=== PATIENT | male | born 1970 | race African-American/Black ===

== ENCOUNTER 2025-01-08 16:20 | Outpatient (REF) | payer OTHER, SELFPAY ==
--- NOTE | ~2025-01-08 | XR_ITS ---
CLINICAL HISTORY: ankle pain 3 view right ankle Comparison: None Findings: No acute fractures. Ankle mortise intact. No significant arthritic change or erosions. No ankle effusion. No radiopaque foreign body. IMPRESSION: 1. No acute findings. This document has been electronically signed by: Abdias Rodriguez MD on 01/10/2025 08:44:33
--- OUTSIDE RECORDS SUMMARY | 2025-01-08 16:28 | XMS_ITS | Clinical Summary ---
Author Organization 175 [facility] Address [address] [place] [address] Phone Care Team Providers Care Javascript Ui Developer Name Role Phone Joseph Jerez NP Primary Care Provider [phone]- [phone] Allergies No known active allergies Medications silver sulfADIAZINE (SILVADENE, SSD) 1 % cream Apply topically to nail bed daily 4 Active polyethylene glycol (GoLYTELY) 236-22.74-6.74 -5.86 gram solution Take 4,000 mL by mouth once for 1 dose. Take 4,000 mL by mouth once for 1 dose 0 Active aspirin 81 mg EC tablet Take 81 mg by mouth daily. Active empagliflozin (Jardiance) 25 mg tablet Take 1 Tab by mouth every morning (before breakfast). Active hydroCHLOROthiazi de (HYDRODIURIL) 25 mg tablet Take 25 mg by mouth daily. Active FREESTYLE LANCETS MISC 1 Each daily as needed. Active linaGLIPtin 5 mg tablet Take 1 Tab by mouth every morning (before breakfast). Active loratadine (CLARITIN) 10 mg tablet Take 10 mg by mouth daily as needed. Active losartan (COZAAR) 50 mg tablet Take 50 mg by mouth daily. Active metFORMIN (GLUCOPHAGE) 500 mg tablet Take 500 mg by mouth 2 times daily (with meals). Active simvastatin (ZOCOR) 40 mg tablet Take 1 tablet (40 mg total) by mouth at bedtime. Active blood sugar diagnostic (FreeStyle Lite Strips) test strip 1 Each by In Vitro route daily as needed. Active nystatin (MYCOSTATIN) ointment Apply topically 2 times daily. Active sildenafiL (VIAGRA) 25 mg tablet Take 25 mg by mouth as needed. Active albuterol sulfate (ProAir RespiClick) 90 mcg/actuation aerosol powdr breath activated Inhale 2 puffs by mouth every 4 (four) hours if needed. Active reservoir inhalation (INSPIREASE) device Active Active Problems Problem Noted Date Diagnosed Date Erectile dysfunction 09/30/2019 Hyperlipidemia 09/30/2019 Seasonal allergies 09/30/2019 Severe obesity (BMI 35.0-39. 9) with comorbidity ([facility] V24, [facility] V28) 09/30/2019 Type 2 diabetes mellitus wit h vascular disease ([facility] V24, [facility] V28) 09/30/2019 Immunizations Name Administration Dates Next Due Moderna SARS-CoV-2 COVID-19, mRNA, LNP-S, preservative free 11/14/2020,10/17/2020 Medical History Medical History Date Comments Erectile dysfunction 09/30/2019 DX:Erectile dysfunction Hyperlipidemia 09/30/2019 DX:Hyperlipidemi a Seasonal allergies 09/30/2019 DX:Seasonal a llergies Severe obesity (BMI 35.0-39. 9) with comorbidity ([facility] V24, [facility] V28) 09/30/2019 DX:Severe obesi ty (BMI 35.0- 39.9) with comorbidity ([facility]) Type 2 diabetes mellitus wit h vascular disease ([facility] V24, [facility] V28) 09/30/2019 DX:Type 2 diabetes mellitus with vascular disease ([facility]) Social History Tobacco Use Types Packs/Day Years Used Date Smoking Tobacco: Never Assessed Sex and Gender Information Value Date Recorded Sex Assigned at Not on file Legal Sex Male 9:56 AM EST Gender Identity Not on file Sexual Orientation Not on file Obstetrics History Last Filed Vital Signs Vital Sign Reading Time Taken Comments Blood Pressure - - Pulse - - Temperature - - Respiratory Rate - - Oxygen Saturation - - Inhaled Oxygen Concentration - - Weight 99.8 kg (220 lb) 10/04/2024 6:08 PM EST Height 182.9 cm (6') 03/21/2024 2:53 PM EDT Body Mass Index 29.84 03/21/2024 2:53 PM EDT Plan of Treatment Health Maintenance Due Date Last Done Comments Diabetes: Annual Foot Exam 1979 Diabetes: Annual Retina Eye Exam 1979 HIV Screening 09/12/2023 Hepatitis C Screening 09/12/2023 Social Influencers of Health Screening 09/12/2023 COVID-19 Vaccine ( season) 2024 08/02/2022, 08/11/2021, 11/14/2020, Additional history exists Diabetes: Blood Sugar Control Test (HGBA1C) 12/09/2024 06/10/2024, 06/06/2024 Diabetes: Annual Urine Albumin-Creatinine Ratio (uACR) 06/06/2025 06/06/2024, 06/21/2022, 10/29/2021, Additional history exists Diabetes: Annual GFR (Glomerular Filtration Rate) 06/10/2025 06/10/2024 Hypertension/CHF/CAD Annual BMP Blood Test 06/10/2025 06/10/2024 Depression Screening 07/09/2025 07/09/2024 Cholesterol Screening (Lipid Panel) 06/10/2029 06/10/2024, 06/10/2024, 09/07/2023, Additional history exists Colorectal Cancer Screening: Colonoscopy 09/20/2029 09/20/2019 DTaP,Tdap,and Td Vaccines (3 - Td or Tdap) 08/02/2032 08/02/2022, 07/10/2012 Hepatitis B Vaccines Completed 01/11/2013, 09/04/2012, 07/10/2012 Zoster Vaccines Completed 06/21/2022, 04/21/2022 Pneumococcal Vaccine: 50+ Years Completed 11/21/2023, 08/26/2014 Pneumococcal Vaccine: Pediatrics (0 to 5 Years) and At-Risk Patients (6 to 64 Years) Completed 11/21/2023, 08/26/2014 Influenza Vaccine Completed 06/06/2024, , 04/19/2022, Additional history exists HIB Vaccines Aged Out No longer eligi ble based on patient's age to complete this topic HPV Vaccines Aged Out No longer eligi ble based on patient's age to complete this topic Hepatitis A Vaccines Aged Out No long er eligible based on patient's age to complete this topic IPV Vaccines Aged Out No longer eligi ble based on patient's age to complete this topic MMR Vaccines Aged Out No longer eligi ble based on patient's age to complete this topic Meningococcal ACWY Vaccine Aged Out N o longer eligible based on patient's age to complete this topic Meningococcal B Vaccine Aged Out No l onger eligible based on patient's age to complete this topic RSV Immunization Patients Under 20 months Aged Out No longer eligible based on patient's age to complete this topic Varicella Vaccines Aged Out No longer eligible based on patient's age to complete this topic Procedures Procedure Name Priority Date/Time Associated Diagnosis Comments COLONOSCOPY Routine 09/20/2019 from Last 3 Months or Most Recently Relevant to Health Maintenance Results * Colonoscopy (09/20/2019) Colonoscopy no interpretation , abstracted Anatomical Region Laterality Modality Other Historical Provider MD HEALTH MAINTENANCE Final Result from Last 3 Months or Most Recently Relevant to Health Maintenance Insurance [facility] [employer] Care Teams Javascript Ui Developer Relationship Specialty Start Date End Date Joseph Jerez NP [address] [place] [address] PCP - General Nurse Practitioner 08/28/24
== END 2025-01-08 16:21 | disposition home or self-care (01) ==
LOC: HO.XRAY 16:20
PROVIDERS: Visit Provider Psychiatry & Neurology Neurology
DX: M25.571 Pain in right ankle and joints of right foot (principal)
CPT/HCPCS: 73610

== ENCOUNTER → 2025-01-08 16:40 | Outpatient (BNV) | payer OTHER, SELFPAY | PROVIDERS: Visit Provider Specialist | DX: M25.571 Pain in right ankle and joints of right foot (principal) | CPT/HCPCS: 73610 ==

== ENCOUNTER 2025-06-11 13:39 | Outpatient (AMB) | payer OTHER, SELFPAY ==
--- NOTE | 2025-06-11 13:52 | MHC.OFFVIS ---
Intake Visit Reasons: 3m Allergies No Known Allergies Allergy (Verified 04/01/25 07:32) HPI Comments Details: 54 yr old man with severe spinal cord compression at C5-6 with cord abnormality who presented with a history of progressive gait disturbance.? He? started with fatigue in his legs, which got gradually worse over a few months with increasing stiffness in the legs, weakness and multiple falls.? His upper body feels fine.? His balance has been poor.? If he coughs or sits in certain ways, he can be incontinent of urine.? He has no pain no neck pain or headaches.? He has no previous neurological symptoms. He had decompression 01/15/[address] Hernandez. He is doing great with a 75% improvement. . Occasionally the legs drag and endurance is much better [facility] Medical History (Updated 06/11/25 @ 14:07 by Madeline Walker MD) Demyelinating disease Cervical myelopathy Review of Systems Const Details: ?Sleep:? Difficulty getting to sleepdenies.? Difficulty maintaining sleepdenies?.? Urge to move legsdenies.? Teeth grindingdenies.? Shouting or Kicking during sleepdenies.? Abnormal behavior during sleepdenies.? Excessive sleepdenies.? Snoringdenies.? Daytime sleepinessdenies. ???General/Constitutional:? Change in appetitedenies.? Chillsdenies.? Fatigueadmits.? Feverdenies.? Weight gaindenies.? Weight lossadmits. ???Ophthalmologic:? Blurred visiondenies.? Diminished visual acuitydenies. ???ENT:? Stuffinessdenies.? Decreased hearingdenies.? Dry mouthdenies.? Ear paindenies.? Nosebleeddenies.? Ringing in the earsdenies.? Sinus paindenies.? Sore throatdenies.? Swollen glandsdenies. ???Endocrine:? Cold intolerancedenies.? Excessive thirstdenies.? Frequent urinationdenies.? Heat intolerancedenies. ???Respiratory:? Shortness of breathdenies.? Chest paindenies.? Coughdenies. ???Breast:? Breast lumpdenies.? Nipple dischargedenies. ???Cardiovascular:? Chest pain at restdenies.? Chest pain with exertiondenies.? Claudicationdenies.? Dizzinessdenies.? Fluid accumulation in the legsdenies.? Irregular heartbeatdenies.? Palpitationsdenies. ???Gastrointestinal:? Abdominal paindenies.? Constipationdenies.? Diarrheadenies.? Difficulty swallowingdenies.? Heartburndenies.? Nauseadenies.? Rectal bleedingdenies. ???Hematology:? Easy bruisingdenies.? Prolonged bleedingdenies. ???Genitourinary:? Frequent urinationdenies.? Urgencydenies.? Incontinenceadmits.? Erectile Dysfunctionadmits. ???Musculoskeletal:? Neck paindenies.? Back paindenies.? Muscle achesdenies.? Painful jointsdenies.? Sciaticadenies.? Weaknessadmits. ???Podiatric:? Difficulty walkingdenies.? Foot numbnessdenies. ???Neurologic:? Difficulty swallowingdenies.? Balance difficultyadmits.? Coordinationnormal.? Difficulty speakingdenies.? Dizzinessdenies.? Faintingdenies.? Gait abnormalityadmits.? Headachedenies.? Loss of strengthdenies.? Loss of use of extremitydenies.? Low back paindenies.? Memory lossdenies.? Seizuresdenies.? Ticsdenies.? Tingling/Numbnessdenies.? Transient loss of visiondenies.? Tremordenies. ???Psychiatric:? Anxietydenies.? Auditory/visual hallucinationsdenies.? Delusionsdenies.? Depressed mooddenies.? Stressorsdenies.? Substance abusedenies.? Suicidal thoughtsdenies. Physical Exam Neuro Other: Neurological: Abnormal neurological findings:??spastic gait particularly on the right side.? Slightly increased tone in the right upper extremity with hyperreflexia and slowing of rapid alternating movements.? Right lower extremity weakness for to 4+/5 in hip flexors, hamstrings and dorsi flexion.? Bilateral hyperreflexia 3-4+ right more than left with an extensor plantar response on the right and equivocal on the left..?Mental Status:??alert and oriented X 3,?Normal attention, orientation, memory and affect.?Cranial Nerves:??Pupils are equal, round and reactive to light. Fundoscopy shows normal disc bilaterally. External occular muscles are intact. Visual mei are full, no ptosis. Face is symmetrical, no facial weakness or droop. Facial sensations are normal. Tongue protrudes in midline. Palate elevates symmetrically. Shoulder shrugging is normal..?Motor Examination:??as described above, otherwise normal muscle tone, bulk and strength,?No atrophy or fasciculations,?No drift of the extended upper extremities,?Deep tendon reflexes are 3-4+?,?Plantars are extensor on the right and equivocal on the left.?Straight Leg Raising:??90 degrees.?Sensory Exam:??Normal light touch, temperature, pinprick, vibration and joint-position sensations?,?Rhomberg sign is absent.?Coordination:??no ataxia,?no titubation,?qnlbsv-fg-nqrc, lhxr-dedl-bvji test and rapid alternating movements were normal.?Gait Exam:??spastic gait as described above..?Cerebellar Signs:??Vthpzg-xy-atou and oqim-eu-nokl is normal,?no dysdiadochokinesia?.?Extrapyramidal System:??No tremor, rigidity with normal facial expressions,?No bradykinesia, no bradyphrenia. Normal arm swing and posture. No propulsion or retropulsion.?Speech:??Normal,?no dysphasia or dysarthria..? Mini Mental Status Exam: Level of Consciousness:??Alert.?Orientation:??Knows correct year, month, date, day and season,?Knows correct city, county and state. Knows correct location and floor.?Registration:??Able to register 3 objects.?Attention:??Serial 7's performed accurately.?Recall:??Able to recall 3 out of 3 objects.?Language:??Normal spontaneous speech, fluency, repetition,naming, comprehension, reading and writing.?Total Score:??30/30.? General Examination: GENERAL APPEARANCE:??normal,?in no acute distress.?HEAD:??normocephalic,?atraumatic.?EYES:??sclera non-icteric,?conjunctiva clear.?EARS:??auditory canal clear,?tympanic membrane intact, clear.?NOSE:??no lesions.?ORAL CAVITY:??gums normal,?mucosa moist,?no lesions.?THROAT:??clear.?NECK/THYROID:??no cervical lymphadenopathy,?thyroid normal,?neck supple, full range of motion,?no carotid bruit.?SKIN:??no rashes,?no significant birthmarks.?HEART:??S1, S2 normal,?no murmurs.?LUNGS:??clear anteriorly and posteriorly.?CHEST:??no gross rib deformity,?clear to auscultation.?BACK:??normal exam of spine.?EXTREMITIES:??no edema.?PERIPHERAL PULSES:??normal.?PSYCH:??alert, oriented,?cognitive function intact,?cooperative with exam.? Assessment & Plan Assessment & Plan (1) Cervical myelopathy: Code(s): G95.9 - Disease of spinal cord, unspecified Category: Medical (2) Cervical spinal cord compression: Code(s): G95.20 - Unspecified cord compression Category: Medical Plan Start PT for 6 wks. Increase walking. Weight lifting restriction to 15 lbs. Coding Level of Care Code Est Pt Level 4 (07011) Diagnoses Cervical myelopathy G95.9 Cervical spinal cord compression G95.20
--- OUTSIDE RECORDS SUMMARY | 2025-06-11 17:25 | XMS_ITS | Clinical Summary ---
Author Organization 175 [facility] Address [address] [place] [address] Phone Care Team Providers Care Senior Architect Name Role Phone Joseph Jerez NP Primary Care Provider +1- [phone] Allergies No known active allergies Medications silver [...] Severe obesity (BMI 35.0-39. 9) with comorbidity ([facility] [place], [facility] V28) 09/30/2019 Type 2 diabetes mellitus wit h vascular disease ([facility]24, [facility] V28) 09/30/2019 Immunizations Immunization Administration Dates Next Due Moderna SARS-CoV-2 COVID-19, mRNA, LNP-S, preservative free 11/14/2020,10/17/2020 Medical History Medical History Date Comments Erectile dysfunction 09/30/2019 DX:Erectile dysfunction Hyperlipidemia 09/30/2019 DX:Hyperlipidemi a Seasonal allergies 09/30/2019 DX:Seasonal a llergies Severe obesity (BMI 35.0-39. 9) with comorbidity ([facility] V24, [facility] V28) 09/30/2019 DX:Severe obesi ty (BMI 35.0- 39.9) with comorbidity ([facility]) Type 2 diabetes mellitus wit h vascular disease ([facility], [facility] V28) 09/30/2019 DX:Type 2 diabetes mellitus with vascular disease ([facility]) Social History Tobacco Use Types [...] 1979 Diabetes: Annual Retina Eye Exam 1979 RSV Immunization Adult Patients (1 - Risk 50-74 years 1-dose series) 2019 HIV Screening 09/12/2023 Hepatitis C Screening 09/12/2023 Social Influencers of Health Screening 09/12/2023 Depression Screening 08/14/2024 COVID-19 Vaccine ( season) 2025 08/02/2022, 08/11/2021, 11/14/2020, Additional history exists Influenza Vaccine (#1) 2025 , 06/01/2023, 04/19/2022, Additional history exists Diabetes: Annual Urine Albumin-Creatinine Ratio (uACR) 06/06/2025 06/06/2024, 06/21/2022, 10/29/2021, Additional history exists Diabetes: Blood Sugar Control Test (HGBA1C) 06/06/2025 12/05/2024, 06/10/2024, 06/06/2024 Diabetes: Annual GFR (Glomerular Filtration Rate) 06/10/2025 06/10/2024 Hypertension/CHF/CAD Annual BMP Blood Test 06/10/2025 06/10/2024 Cholesterol Screening (Lipid Panel) 06/10/2029 06/10/2024, 06/10/2024, 09/07/2023, Additional history exists Colorectal Cancer Screening: Colonoscopy 09/20/2029 09/20/2019 DTaP,Tdap,and Td Vaccines (3 - Td or Tdap) 08/02/2032 08/02/2022, 07/10/2012 Hepatitis B Vaccines Completed 01/11/2013, 09/04/2012, 07/10/2012 Zoster Vaccines Completed 06/21/2022, 04/21/2022 Pneumococcal Vaccine: 50+ Years Completed 11/21/2023, 08/26/2014 HIB Vaccines Aged Out No longer eligi [...] Most Recently Relevant to Health Maintenance Insurance [facility] [facility] [employer] Care Teams Senior Architect Relationship Specialty Start Date End Date Joseph Jerez NP [address] [place] [address] PCP - General Nurse Practitioner 08/28/24
--- OUTSIDE RECORDS SUMMARY | 2025-06-11 17:25 | XMS_ITS | Clinical Summary ---
Author Organization [facility] Address [address] [address] Phone Care Team Providers Care Supervisor Gear Repair Name Role Phone Pcp, Unknown Primary Care Provider Unavailabl e Child, Jimmy Ramirez JO Unavailable Medications amLODIPine (NORVASC) 10 MG tablet Take 10 mg by mouth daily. Active JENTADUETO XR 2.5-1,000 mg TBph Take 2 tablets by mouth daily. 12/05/2024 Active empagliflozin (JARDIANCE) 25 mg tablet Take 1 tablet by mouth daily with breakfast. 12/05/2024 Active losartan-hydroC HLOROthiazide (HYZAAR) 100-25 mg per tablet Take 1 tablet by mouth daily. Active atorvastatin (LIPITOR) 40 MG tablet Take 40 mg by mouth daily. Active tadalafiL (CIALIS) 5 MG tablet Take 5 mg by mouth daily as needed. 11/21/2023 Active Social History Tobacco Use Types Packs/Day Years Used Date Smoking Tobacco: Never Assessed Education Answer Date Recorded Are you interested in more education? Not on román e 07/10/2024 Are you concerned about learning? Not on file 07/10/2024 No 07/10/2024 No 07/10/2024 Digital Access Answer Date Recorded No 07/10/2024 No 07/10/2024 Reliable internet access at home? Not on file 07/10/2024 Device with a working camera? Not on file Sex and Gender Information Value Date Recorded Sex Assigned at Not on file Legal Sex Male 12:14 PM EST Gender Identity Not on file Sexual Orientation Not on file Plan of Treatment Health Maintenance Due Date Last Done Comments CREATININE LEVEL 1969 POTASSIUM LEVEL 1969 DEPRESSION SCREENING 1981 SMOKING Hx and SMOKELESS TOBACCO SCREENING 1982 HEPATITIS C SCREENING 1987 HIV ONE-TIME SCREENING (18-65 YEARS) 1987 COLOGUARD 2014 COLONOSCOPY 2014 COLORECTAL CANCER SCREENING 2014 FIT TEST 2014 FOBT 2014 SIGMOIDOSCOPY 2014 VIRTUAL COLONOSCOPY 2014 PNEUMOCOCCAL VACCINES (50+ years) (1 of 1 - PCV) 2019 RSV VACCINE (1 - Risk 50-74 years 1-dose series) 2019 ZOSTER VACCINES (1 of 2) 2019 INFLUENZA VACCINE (#1) 2025 COVID-19 VACCINE (1 - season) 2025 LIPID PANEL 06/10/2029 06/10/2024, 05/15, 09/07/2023, Additional history exists Adult Td,Tdap Booster 08/02/2032 08/02/2022, 012 HEPATITIS A VACCINES Aged Out No long er eligible based on patient's age to complete this topic HIB VACCINES Aged Out No longer eligi ble based on patient's age to complete this topic MENINGOCOCCAL VACCINES (ACWY) Aged Out No longer eligible based on patient's age to complete this topic MENINGOCOCCAL VACCINES (B) Aged Out N o longer eligible based on patient's age to complete this topic Medical Devices Not on file Insurance [facility] NON NSPG PCP [facility] NON NSPG PCP [employer] NON NSPG PCP S[employer]VER [employer] WELLSENSE NON NSPG PCP S[employer] WELLS[employer] NON NSPG PCP S[employer] NON NSPG PCP S[employer]VER [employer] Care Teams Supervisor Gear Repair Relationship Specialty Start Date End Date Pcp, Unknown PCP - General 06/28/24 Child, Jimmy Ramirez PA-C [address] [place] [address] Referring Physician Physician [place] Operator 07/10/24 Additional Source Comments The information contained in this document represents components of the legal health record. It is not the complete legal health record.[facility]
--- OUTSIDE RECORDS SUMMARY | 2025-06-11 17:25 | XMS_ITS | Clinical Summary ---
Author Organization [facility] Address [address] [place] [address] Care Team Providers Care Daycare Manager Name Role Phone Solitario Joseph PENNIE Primary Care Provider [phone] Source Comments PLEASE NOTE, if this patient is a minor, it may be UNLAWFUL to discuss sensitive information that is contained in these records (such as FAMILY PLANNING, MENTAL HEALTH or SUBSTANCE ABUSE) with the minor patient's parent or other person without the patient's specific authorization.[facility] Allergies No known active allergies Medications spacerIndicatio ns:Bronchitis Use prn for wheezing 786.07 with Mdi. 1 Inhaler 1 08/22/19 15 Active blood-glucose meter monitoring kitIndications: Type 2 diabetes mellitus without complication, without long-term current use of insulin Use to check BG 1X/D DX E11.9 Freestyle Lite 1 Each 03/05/20 21 Active lancets (FREESTYLE LANCETS) 28 gaugeIndication s:Type 2 diabetes mellitus without complication, without long-term current use of insulin Use to check BG 1X/D DX E11.9 Freestyle Lite 100 Each 11 05/06/20 22 Active tadalafiL (CIALIS) 5 mg tablet Take 1 Tablet by mouth once daily as needed for erectile dysfunction 11/21/19 24 Active hydrocortisone 2.5 % ointment apply TO jawline TWICE DAILY NEEDED FOR flares AFTER shaving Authorized by: TIBURCIO VERONICA 02/23/20 24 Active blood sugar diagnostic stripsIndicatio ns:Type 2 diabetes mellitus without complication, without long-term current use of insulin Use to check BG 1X/D DX E11.9 Freestyle Lite 100 Each 11 02/29/20 24 Active linagliptin-met formin (JENTADUETO XR) 2.5-1,000 mg TBphIndications :Type 2 diabetes mellitus without complication, without long-term current use of insulin Take 2 Tablets by mouth daily 180 Tablet 3 12/06/19 25 Active losartan-hydroc hlorothiazide (HYZAAR) 100-25 mg per tabletIndicatio ns:Primary hypertension TAKE ONE TABLET BY MOUTH DAILY. STOP losartan TABLET AND hydrochlorothi azide. 90 Tablet 1 01/10/20 25 Active JARDIANCE 25 mg tabIndications: Type 2 diabetes mellitus without complication, without long-term current use of insulin TAKE ONE TABLET BY MOUTH ONCE DAILY WITH BREAKFAST 90 Tablet 1 03/25/20 25 Active amLODIPine (NORVASC) 10 mg tabletIndicatio ns:Primary hypertension TAKE ONE TABLET BY MOUTH ONCE DAILY 90 Tablet 1 05/19/20 25 Active atorvastatin (LIPITOR) 40 mg tablet Take 1 Tablet by mouth once daily 90 Tablet 2 05/19/20 25 Active atorvastatin (LIPITOR) 40 mg tablet Take 1 Tablet by mouth once daily 90 Tablet 2 07/26/20 24 025 Discontinued amLODIPine (NORVASC) 10 mg tabletIndicatio ns:Primary hypertension TAKE ONE TABLET BY MOUTH ONCE DAILY 90 Tablet 1 02/04/20 25 025 Discontinued Active Problems Problem Noted Date Diagnosed Date Cervical myelopathy 12/16/2024 Overview (12/16/2024): 12/11/2024 - [facility]rology - [facility] - Dx: Cervical myelopathy; Demyelinating disease - Tx MRI cervical spine - Tx MRI brain F/u 4 weeks Demyelinating disease 12/16/2024 Overview (12/16/2024): 12/11/2024 - Neurology - [facility] - Dx: Cervical myelopathy; Demyelinating disease - Tx MRI cervical spine - Tx MRI brain F/u 4 weeks History of prostate cancer 07/09/2024 Food insecurity 11/21/2023 Functional urinary incontinence 11/21/2023 Overview (11/21/2023): S/p prostatectomy History of colon polyps 11/21/2023 Overview (11/21/2023): Due for repeat in 2024 per [facility] report from 2020 Class 1 obesity due to exces s calories with serious comorbidity and body mass index (BMI) of 32.0 to 32.9 in adult 09/07/2023 Prostate cancer 10/28/2022 Overview (11/21/2023): November 2023: Follows with [facility] urology Type 2 diabetes mellitus without complication Erectile dysfunction 01/01/2014 Dyslipidemia 07/28/2013 HTN (hypertension) Overview (07/22/2013): Except mild LVH Echo ([place]) [facility] Vitamin D deficiency Obesity (BMI 30-39.9) Resolved Problems Problem Noted Date Diagnosed Date Resolved Date Lung cancer 10/28/2022 11/21/2023 Bone cancer 10/28/2022 11/21/2023 Elevated PSA 06/29/2022 11/21/2023 Overview (06/29/2022): June 2022 Tinea cruris 12/16/2018 04/21/2022 Ingrown left big toenail 12/16/201803/2022 Overview (12/16/2018): Has had several recurrences of this ingrown toenail recently had it removed by Dr. Fernandez and is now scheduling routine nail care in an attempt to alleviate this problem Echocardiogram abnormal 04/04/201401/12 DM2 (diabetes mellitus, type 2) 04/04/2014 12/29/2014 Testosterone deficiency 04/04/201401/12 Routine general medical exam ination at a health care facility 01/01/2014 01/29/2015 Tinea pedis 07/26/2013 01/29/2015 Preventive measure 07/26/2013 5 DM (diabetes mellitus) 05/14/201001/01 Overview (07/22/2013): A1C 6.5% Abnormal CBC 01/29/2015 Overview (07/22/2013): Cbc - HEM Family hx of prostate cancer 01/29/2015 Overview (08/22/2014): father age 52. High risk group also Afro-[place]ese. Encounters Date Type Department Care Team Description 06/07/2025 Results Follow-Up [address] [phone] Donal Warren, PharmD 06/05/2025 2:40 PM EDT Office Visit [address] [phone] Donal Warren PharmD 04/11/2025 2:40 PM EDT Office Visit [address] [phone] Donal Warren, PharmD from Last 3 Months Immunizations Immunization Administration Dates Next Due Flu, Preservative Free 06/01/2023,2021,06/04/2021,05/12,05/30/2019,06/15/2018,07/21/2017 Hep B, Adult/Adol (OISNHUI-Z-EUIKZ/RECOMBIVAX-ADULT) 01/11/2013,09/04/2012,07/10/2012 INFLUENZA, SEASONAL, INJECTABLE 05/17/20 16,06/29/2015,06/16/2014,07/22,05/24/2012,06/02/2011 Influenza (FLUBLOK),recombinant,injectable,prese rvative Free 06/05/2025,06/06/2024 MODERNA COVID-19 VACCINE BIV ALENT, BLUE CAP, 6M+ 08/02/2022 Moderna COVID-19 Vaccine, re d cap blue label, 12+ Primary Series 11/14/2020,10/17/2020 PNEUMOCOCCAL CONJUGATE PCV 2 0 (Prevnar 20) 11/21/2023 PNEUMOCOCCAL POLYSACCHARIDE PPV23 (Pneumovax 23) 08/26/2014 TDAP 08/02/2022,07/10/2012 ZOSTER VACCINE, RECOMBINANT (SHINGRIX) 2,04/21/2022 Family History Medical History Relation Name Comments Diabetes Brother 1 Hypertension Brother 1 Cancer Father Prostate Heart Problems Father [place] Hypertension Father Hypertension Mother No Known Problems Sister 2 Relation Name Status Comments Brother 1 Father (Age 63) [place]ive [place] Mother Alive Sister 2 Social History Tobacco Use Types Packs/Day Years Used Date Smoking Tobacco: Never Passive Smoke Exposure: Never Smokeless Tobacco: Never Tobacco Cessation:Counseling Given: Not Answered Alcohol Use Standard Drinks/Week Comments Yes 0 (1 standard drink = 0.6 oz pure alcohol) 1 x month approx 1 drink at a time Social Connections Answer Date Recorded How often do you feel lonely or isolated from th ose around you? 1 09/13/2024 Financial Resource Strain Answer Date R ecorded Hard to pay for: Food 1 09/13/2024 Stress Answer Date Recorded Do you feel these kinds of stress these days? 2 09/13/2024 Physical Activity Answer Date Recorded Physical Activity 0 04/06/2019 Food Insecurity Answer Date Recorded Hard to pay for: Food 1 09/13/2024 Transportation Needs Answer Date Record ed Hard to pay for: Transportation 1 09/13/2024 Housing Stability Answer Date Recorded Hard to pay for: Rent/Mortgage payment 1 09/13/2024 Safety and Environment Answer Date Jayjay rded Safety 1 11/21/2023 Utilities Answer Date Recorded Hard to pay for: Utilities 1 09/13 Employment Answer Date Recorded Stress 0 11/01/2021 Sex and Gender Information Value Date Recorded Sex Assigned at Male 07/21/2017 10:06 AM PST Legal Sex Male 11:36 AM PDT Gender Identity Male 07/21/2017 10:06 AM PST Sexual Orientation Straight 12/01/2020 10 :57 AM PDT Occupation Industry Job Start Date Job End Date owns car dealership, propert y management, [employer] Not on file Not on file Not on file Last Filed Vital Signs Vital Sign Reading Time Taken Comments Blood Pressure 127/82 06/05/2025 2:45 PM EDT Pulse 70 06/05/2025 2:45 PM EDT Temperature 36.8 C (98.3 F) 06/05/2025 2:45 PM EDT Respiratory Rate 18 06/05/2025 2:45 PM EDT Oxygen Saturation 95% 04/11/2025 2:54 PM EDT Inhaled Oxygen Concentration - - Weight 109.6 kg (241 lb 9.6 oz) 06/05/2025 2:45 PM EDT Height 180.3 cm (5' 11 ) 06/05/2025 2:45 PM EDT Body Mass Index 33.7 06/05/2025 2:45 PM EDT Plan of Treatment Upcoming Encounters Date Type Department Care Team (Late st Contact Info) Description 07/03/2025 9:40 AM EST Office Visit [facility] [address] [place] [phone] Joseph Jerez FNP [address] [place] [address] Health Maintenance Due Date Last Done Comments Dental FMX/Pano 1969 CT Colonography 2014 FIT/gFOBT 2014 Fecal DNA 2014 Flexible Sigmoidoscopy 2014 Alcohol and Drug Screen 08/14/2024 07/09/20 24, 11/21/2023, 04/21/2022, Additional history exists Depression Annual Screen 08/14/2024 024, 11/21/2023, 01/29/2015 Annual Wellness (Adult): Indicated (All Coverage) 11/20/2024 11/21/2023, 04/21/2022, 11/06/2015, Additional history exists Diabetes Foot Exam 11/20/2024 11/21/2023, 0 04/21/2022, 11/06/2015 [id number] ( season) 2025 08/02/2022, 08/11/2021, 11/14/2020, Additional history exists Dental Prophy 04/21/2025 10/17/2024, 03/16, 10/27/2022, Additional history exists Anxiety Screening 07/09/2025 07/09/2024 Retinopathy Screening 07/18/2025 07/18/2024 , 06/02/2023, 12/24/2018 (Managed by Outside Provider), Additional history exists Dental BW 10/19/2025 10/17/2024, 04/12/2024 Dental Examination 10/19/2025 10/17/2024, 0 04/12/2024, 10/27/2022, Additional history exists Dental Perio Charting 10/19/2025 10/17/2024, 023 Hemoglobin A1c 12/04/2025 06/05/2025, 11/13, 06/10/2024, Additional history exists Tobacco Screening 04/11/2026 04/11/2025 Lipid Screening 06/05/2026 06/05/2025, 05/15, 09/07/2023, Additional history exists Serum Creatinine 06/05/2026 06/05/2025, , 06/10/2024, Additional history exists Urine Albumin Creatinine Rat io Screening 06/05/2026 06/05/2025, 06/06/2024, 06/21/2022, Additional history exists Colonoscopy 11/29/2028 11/30/2023 Colorectal Cancer Screening 11/29/2028 Imm-DTaP/Tdap/Td (3 - Td or Tdap) 08/02/2032 022, 07/10/2012 Imm-Hepatitis B Discontinued 01/11/2013, 08/15, 07/10/2012 Hepatitis C Screening Completed 11/21/2016 HIV Screening Completed 06/21/2022 Imm-Zoster, Recombinant Completed 06/21/2022, 04/21 Imm-Pneumococcal 50+ Completed 11/21/2023, 08/26/19 15 Imm-Influenza Completed 06/05/2025, 05/15, 06/01/2023, Additional history exists Goals Goal Patient Goal Type Associated Problems Recent Progress Patient-Stated? Author Blood Pressure < 140/90 Blood Pressure 127/82(2024 2:45 PM EDT) No Donal Warren, PharmD Hypertension: Decrease sodium intake General On track( 3:28 PM PST) No Donal Warren, PharmD Weight < 200 lb (90.719 kg) Weight 241 lb 9.6 oz (109.6 kg)( 2:45 PM EDT) No Amparo Vega, DNP Note: Pt would like to lose 5 lbs in 3 mo Procedures Procedure Name Priority Date/Time Associated Diagnosis Comments MICROALBUMIN/CREATINI NE RATIO, URINE, RANDOM Routine 06/05/2025 3:16 PM EDT Type 2 diabetes mellitus without complication LIPID PANEL Routine 06/05/2025 3:16 PM EDT Type 2 diabetes mellitus without complication Primary hypertension Dyslipidemia COMPREHENSIVE METABOLIC PANEL Routine 06/05/2025 3:16 PM EDT Type 2 diabetes mellitus without complication Primary hypertension HGBA1C W/MPG Routine 06/05/2025 3:16 PM EDT Type 2 diabetes mellitus without complication GLUCOSE, BLOOD BY GLUCOSE MONITORING DEVICE (CLIA WAIVED)POCT Routine 06/05/2025 2:51 PM EDT Type 2 diabetes mellitus without complication GLUCOSE, BLOOD BY GLUCOSE MONITORING DEVICE (CLIA WAIVED)POCT Routine 04/11/2025 3:40 PM EDT Type 2 diabetes mellitus without complication, without long-term current use of insulin ([facility]) REFERRAL SCANNED DOCUMENT 03/12/2025 3:00 AM EDT BITEWINGS - FOUR RADIOGRAPHIC IMAGES Routine 10/17/2024 3:40 PM EST Encounter for dental examination and cleaning with abnormal findings Fracture of crown, enamel, and dentin of tooth without pulp exposure PROPHYLAXIS - ADULT Routine 10/17/2024 3 :40 PM EST Encounter for dental examination and cleaning with abnormal findings PERIODIC ORAL EVALUATION ESTABLISHED PATIENT Routine 10/17/2024 3:40 PM EST Encounter for dental examination and cleaning with abnormal findings EYE EXAM 07/18/2024 3:00 AM EST COLONOSCOPY Routine 11/30/2023 9:21 AM EDT COMP PERIODONTAL EVALUATION - NEW/EST PATIENT Routine 10/27/2022 3:40 PM EDT Gingivitis, chronic, plaque induced HIV 1/2 AG & AB W/RFLX (4TH GEN) Routine 06/21/2022 1:34 PM EST Type 2 diabetes mellitus without complication, without long-term current use of insulin ([facility]) HEPATITIS A,B,C PANEL Routine 11/21/2016 9:08 AM EDT Physical exam, routine from Last 3 Months or Most Recently Relevant to Health Maintenance Results * (ABNORMAL) HGBA1C W/MPG Routine (06/05/2025 3:16 PM EDT) HEMOGLOBIN A1C 6.3(H) <5.7 % 06/06/2025 3:11 AM EDT [employer] MEAN PLASMA GLUCOSE 147 mg/dL (calc) 06/06/2025 3:11 AM EDT [employer] Blood Blood / Unknown 06/05/2025 3 :16 PM EDT 06/06/2025 2:00 AM EDT Narrative [facility] - 06/06/2025 3:35 AM EDT FASTING:UNKNOWN For someone without known diabetes, a hemoglobin A1c value between 5.7% and 6.4% is consistent with prediabetes and should be confirmed with a follow-up test. . For someone with known diabetes, a value <7% indicates that their diabetes is well controlled. A1c targets should be individualized based on duration of diabetes, age, comorbid conditions, and other considerations. . This assay result is consistent with an increased risk of diabetes. . Currently, no consensus exists regarding use of hemoglobin A1c for diagnosis of diabetes for children. . us Donal Ramos PharmD LAB - BLOOD D RAW Final Result [facility] [address] [place] [id number], [employer] [address] [place] [phone] * (ABNORMAL) MICROALBUMIN/CREATININE RATIO, URINE, RANDOM Urine Routine (06/05/2025 3:16 PM EDT) CREATININE, RANDOM URINE 130 20 - 320 mg/dL 06/06/2025 6:16 PM EDT [employer] MICROALBUMIN 4.1 mg/dL 06/06/2025 6:16 PM EDT [employer] MICROALBUMIN/CRE ATININE RATIO, RANDOM URINE 32(H) <30 mg/g creat 06/06/2025 6:16 PM EDT [facility] Urine Urine specimen / Unknown 06/05/2025 3:16 PM EDT 06/06/2025 5:05 AM EDT [facility] - 06/06/2025 6:18 PM EDT FASTING:UNKNOWN Reference Range Not established . The ADA defines abnormalities in albumin excretion as follows: . Albuminuria Category Result (mg/g creatinine) . Normal to Mildly increased <30 Moderately increased 30-299 Severely increased > OR = 300 . The ADA recommends that at least two of three specimens collected within a 3-6 month period be abnormal before considering a patient to be within a diagnostic category. Donal Ramso PharmD LAB URINE AMB ULATORY Final Result [facility] [address] [address], [facility] [address] [phone] * (ABNORMAL) LIPID PANEL Routine (06/05/2025 3:16 PM EDT) CHOLESTEROL, TOTAL 132 <200 mg/dL 06/06/2025 7:16 AM EDT [facility] HDL CHOLESTEROL 34(L) > OR = 40 mg/dL 06/06/2025 7:16 AM EDT [facility] TRIGLYCERIDES 146 <150 mg/dL 06/06/2025 7:16 AM EDT [facility] LDL-CHOLESTEROL 75 mg/dL (calc) 06/06/2025 7:16 AM EDT [facility] CHOL/HDLC RATIO 3.9 <5.0 (calc) 06/06/2025 7:16 AM EDT [facility] NON-HDL CHOLESTEROL 98 <130 mg/dL (calc) 06/06/2025 7:16 AM EDT [facility] Blood Blood / Unknown 06/05/2025 3 :16 PM EDT 06/06/2025 3:34 AM EDT [facility] - 06/06/2025 7:39 AM EDT FASTING:UNKNOWN Reference range: <100 . Desirable range <100 mg/dL for primary prevention; <70 mg/dL for patients with CHD or diabetic patients with > or = 2 CHD risk factors. . LDL-C is now calculated using the Ritesh calculation, which is a validated novel method providing better accuracy than the Friedewald equation in the estimation of LDL-C. Moe SS et al. LEESA. 2013;310(19): 9630-8255 (http://education.Appydrink/faq/QYL703) For patients with diabetes plus 1 major ASCVD risk factor, treating to a non-HDL-C goal of <100 mg/dL (LDL-C of <70 mg/dL) is considered a therapeutic option. Donal Ramos PharmD LAB - BLOOD D RAW Final Result [facility] [address] [address], [facility] [address] [address] * (ABNORMAL) COMPREHENSIVE METABOLIC PANEL Routine (06/05/2025 3:16 PM EDT) [facility] GLUCOSE 102(H) 65 - 99 mg/dL 06/06/2025 7:16 AM EDT [facility] UREA NITROGEN (BUN) 13 7 - 25 mg/dL 06/06/2025 7:16 AM [employer] [facility] CREATININE (blood) 1.09 0.70 - 1.30 mg/dL 06/06/2025 7:16 AM [employer] [facility] EGFR 80 > OR = 60 mL/min/1. 73m2 06/06/2025 7:16 AM [employer] [facility] BUN/CREATININE RATIO SEE NOTE: 6 - 22 (calc) 06/06/2025 7:16 AM [employer] [facility] SODIUM 140 135 - 146 mmol/L 06/06/2025 7:16 AM [employer] [facility] POTASSIUM 3.4(L) 3.5 - 5.3 mmol/L 06/06/2025 7:16 AM [employer] [facility] CHLORIDE 101 98 - 110 mmol/L 06/06/2025 7:16 AM EDT [facility] CARBON DIOXIDE 27 20 - 32 mmol/L 06/06/2025 7:16 AM [facility] CALCIUM 9.7 8.6 - 10.3 mg/dL 06/06/2025 7:16 AM EDT [facility] PROTEIN, TOTAL 7.4 6.1 - 8.1 g/dL 06/06/2025 7:16 AM EDT [facility] ALBUMIN 4.5 3.6 - 5.1 g/dL 06/06/2025 7:16 AM EDT [facility] GLOBULIN 2.9 1.9 - 3.7 g/dL (calc) 06/06/2025 7:16 AM [facility] ALBUMIN/GLOBULI N RATIO 1.6 1.0 - 2.5 (calc) 06/06/2025 7:16 AM [facility] BILIRUBIN, TOTAL 1.2 0.2 - 1.2 mg/dL 06/06/2025 7:16 AM [employer] [facility] ALKALINE PHOSPHATASE 62 35 - 144 U/L 06/06/2025 7:16 AM EDT [facility] AST 17 10 - 35 U/L 06/06/2025 7:16 AM [employer] [facility] ALT 11 9 - 46 U/L 06/06/2025 7:16 AM [employer] [facility] Blood Blood / Unknown 06/05/2025 3 :16 PM EDT 06/06/2025 3:34 AM EDT Narrative [facility] - 06/06/2025 7:39 AM EDT FASTING:UNKNOWN . Fasting reference interval . For someone without known diabetes, a glucose value between 100 and 125 mg/dL is consistent with prediabetes and should be confirmed with a follow-up test. . Not Reported: BUN and Creatinine are within reference range. . us Donal Ramos PharmD LAB - BLOOD D RAW Final Result [facility] [address] [address], [facility] [address] [address] * GLUCOSE, BLOOD BY GLUCOSE MONITORING DEVICE (CLIA WAIVED)POCT Routine (06/05/2025 2:51 PM EDT) Only the most recent of2 resultswithin the time period is included. GLUCOSE 92 70 - 100 mg/dL [facility] POCT Capillary Blood Blood / Unknown 2:51 PM EDT Donal Ramos PharmD LAB - BLOOD D RAW Final Result [facility] POCT * REFERRAL SCANNED DOCUMENT (03/12/2025 3:00 AM EDT) 03/12/2025 3:00 AM EDT Joseph Jerez MARBLEIZING MACHINE TENDER SCAN REFERRAL Final Res ult * EYE EXAM (07/18/2024 3:00 AM EST) 07/18/2024 3:00 AM EST Joseph Jerez MARBLEIZING MACHINE TENDER OTHER Edited Re sult - Final * COLONOSCOPY (11/30/2023 9:21 AM EDT) Provider [facility] PROCEDURES Final Result * HIV 1/2 AG & AB W/RFLX (4TH GEN) (06/21/2022 1:34 PM EST) HIV AG/AB, 4TH GEN NON-REAC TIVE NON-REAC TIVE [facility] Comment: HIV-1 antigen and HIV-1/HIV-2 antibodies were not detected. There is no laboratory evidence of HIV infection. PLEASE NOTE: This information has been disclosed to you from records whose confidentiality may be protected by state law. If your state requires such protection, then the state law prohibits you from making any further disclosure of the information without the specific written consent of the person to whom it pertains, or as otherwise permitted by law. A general authorization for the release of medical or other information is NOT sufficient for this purpose. For additional information please refer to http://education.[employer].WhoAPI/faq/LCD776 (This link is being provided for informational/ educational purposes only.) The performance of this assay has not been clinically validated in patients less than 2 years old. Blood Blood / Unknown 06/21/2022 1 :34 PM EST 06/21/2022 1:34 PM EST Joseph Jerez MARBLEIZING MACHINE TENDER LAB - BLOOD DRAW Final Re sult Performing Organization Address [facility]/ZIP Co de Phone Number [facility] [place] [facility] [address] [address], [facility] [address] [address] * (ABNORMAL) HEP ABC (11/21/2016 9:08 AM EDT) HEPATITIS B SURFACE ANTIBODY POSITIVE(A) NEGATIVE [facility] HEPATITIS B SURFACE ANTIGEN NEGATIVE NEGATIVE [facility] Comment: Over the counter supplements containing high doses of biotin may interfere with this assay. If interference is suspected, patients shoud be retested after refraining from biotin supplements for 72 hours. HEPATITIS C VIRUS DIAGNOSTIC NEGATIVE NEGATIVE [facility] HEPATITIS A ANTIBODY TOTAL NEGATIVE NEGATIVE [facility] Comment: Over the counter supplements containing high doses of biotin may interfere with this assay. If interference is suspected, patients shoud be retested after refraining from biotin supplements for 72 hours. HEPATITIS B CORE ANTIBODY NEGATIVE NEGATIVE [facility] Blood specimen (specimen) Blood / Unknown 11/21/2016 9:08 AM EDT 11/21/2016 10:40 AM EDT Narrative [facility] - 11/21/2016 1:38 PM EDT [facility] [address] [place] [address] [place] [id number] ORD# [id number] Marly Johnson PA-C LAB - BLOOD DRAW Edited R esult - Final Performing Organization Address City/[facility]/ZIP Co de Phone Number [facility] [address] [place] [address], from Last 3 Months or Most Recently Relevant to Health Maintenance Insurance [employer] NET D[employer] Member Subscriber Plan / Payer (Ef fective 2016-Present) Name:Franck Bhatt I Relation to Subscriber:Self Name:Franck Bhatt I Payer ID:[id number] Type:Indemnity Address: [facility] [address] [place] [address] Care Teams Daycare Manager Relationship Specialty Start Date End Date Joseph Jerez FNP [address] [place] [address] PCP - General Family Medicine, [employer] 10/29/21
--- OUTSIDE RECORDS SUMMARY | 2025-06-11 17:25 | XMS_ITS | Encounter Summary ---
Author Organization [facility] Address [address] [place] [address] Care Team Providers Care Wine Cellar Stock Clerk Name Role Phone SolitarioJoseph nelson PENNIE Primary Care Provider [phone] Reason for Visit * Reason Onset Date Comments Lab Result 06/07/2025 Encounter Details Date Type Department Care Team (Late st Contact Info) Description 06/07/2025 Results Follow-Up [facility] [address] [place] [id number] Donal Warren, PharmD [address] [place] [address] Social History Tobacco Use Types Packs/Day Years Used Date Smoking Tobacco: Never Passive Smoke Exposure: Never Smokeless Tobacco: Never Alcohol Use Standard Drinks/Week Comments Yes 0 [...] file Not on file Not on file documented as of this encounter Nursing Notes * Laureen Alexandre RN - 06/10/2025 11:23 AM EDT Spoke to pt re: message below confirmed. Pt informed with no further questions/concerns before ending call. documented in this encounter Plan of Treatment Upcoming Encounters Date Type Department Care Team (Late st Contact Info) Description 07/03/2025 9:40 AM EST Office Visit [facility] [address] [place] [id number] Joseph Jerez FNP [address] [place] [address] documented as of this encounter Goals Goal Patient Goal Type Associated Problems Recent Progress Patient-Stated? Author Blood Pressure < 140/90 Blood Pressure 127/82(2024 2:45 PM EDT) No Donal Warren PharmD Hypertension: Decrease sodium intake General On track( 3:28 PM PST) No Donal Warren PharmD Weight < 200 lb (90.719 kg) Weight 241 lb 9.6 oz (109.6 kg)( 2:45 PM EDT) No Amparo Vega, YADIRA Note: Pt would like to lose 5 lbs in 3 mo documented as of this encounter Visit Diagnoses Not on filedocumented in this encounter Additional Health Concerns Assessment Noted Time PHQ-9 Depression Total Score: 0 07/09/20 24 10:30 AM PST A Depression follow-up plan has been documented for the patient 11/26/2023 8:28 PM PDT documented as of this encounter Care Teams Wine Cellar Stock Clerk Relationship Specialty Start Date End Date Joseph Jerez FNP [facility] [place] [address] PCP - General Family Medicine, [employer] 10/29/21 documented as of this encounter
--- OUTSIDE RECORDS SUMMARY | 2025-06-11 17:25 | XMS_ITS ---
Author Organization [facility] Address [address] [address] Care Team Providers Care Heating And Ventilating Worker Name Role Phone Joseph Jerez Primary Care Provider [phone] SA38 BP Program Status:Enrolled (Active) Start date:03/15/2022 Enrollment date:03/15/2022 Case Team Name Relationship Phone Donal Ramos PharmD(Responsible S taff) [phone] Continued Care and Services Coordination
== END 2025-06-11 14:11 | disposition home or self-care (01) ==
PROVIDERS: PCP Nurse Practitioner Family; Visit Provider Psychiatry & Neurology Neurology
DX: G95.9 Disease of spinal cord, unspecified (principal); G95.20 Unspecified cord compression
CPT/HCPCS: 99214

== ENCOUNTER → 2025-06-11 13:39 | Outpatient (BNVA) | payer OTHER, SELFPAY | PROVIDERS: PCP Nurse Practitioner Family; Visit Provider Psychiatry & Neurology Neurology | DX: G95.9 Disease of spinal cord, unspecified (principal); G95.20 Unspecified cord compression | CPT/HCPCS: 99212 ==